=== PATIENT | male | born 1960 | race Caucasian/White ===

== ENCOUNTER 2016-07-28 11:46 | Emergency (ER) | payer OTHER ==
[~2016-07-28] VITALS: Wt 95.0 kg
[~2016-07-28 11:46] MED LIST: CLON2TAB3 PO; METO-407 PO; PARO37.52 PO; QUET200T PO
[2016-07-28 11:51] VITALS: Wt 95.0 kg
[2016-07-28] MEDS ORDERED: DILTIAZEM 25 MG INJ IV ONE (12:30)
[2016-07-28] MEDS ORDERED: PARO40TA48 PO ×2 (12:31→13:51)
[2016-07-28 12:32] LABS: BASOPHILS % 0.3 % (0.0-2.0); EOSINOPHILS % 0.2 % (0.0-7.0); HEMATOCRIT 49.3 % (42.0-52.0); HEMOGLOBIN 17.3 g/dl (14.0-18.0); LYMPHOCYTES # 1.7 10^3/ul (0.8-2.9); LYMPHOCYTES % 15.4 % (15.0-51.0); MEAN CORPUSCULAR VOLUME 99.9 fl (82.0-101.0); MEAN PLATELET VOLUME 8.7 fl (7.4-10.4); MONOCYTE # 1.1 10^3/ul (0.3-0.9); MONOCYTES % 10.3 % (0.0-11.0); NEUTROPHILS % 73.8 % (39.0-77.0); PLATELET COUNT 238 10^3/UL (140-440); RED BLOOD COUNT 4.93 10^6/ul (4.70-6.10); RED CELL DISTRIBUTION WIDTH 13.3 % (11.5-14.5); UNCORRECTED WBC 10.9 10^3/ul (4.8-10.8); WHITE BLOOD COUNT 10.9 10^3/ul (4.8-10.8)
[2016-07-28] MEDS ORDERED: CLON1TAB3 PO (12:33)
[2016-07-28] MEDS ORDERED: DIVA500T7 PO ×2 (12:33→13:51)
--- NOTE | 2016-07-28 12:33 | RADRPT ---
PROCEDURE: XR Chest. CLINICAL INDICATION: Chest pain. TECHNIQUE: Single frontal view. COMPARISON: None. FINDINGS: The lungs are clear. The heart size is normal. There is no pleural effusion. There is no pneumothorax. IMPRESSION: 1. Normal chest radiograph. RPTAT: QQ .Vaughn Lujan MD, Date Time Electronically viewed and signed by .Vaughn Lujan MD, on 07/28/2016 12:33 .R/
[2016-07-28 12:35] VITALS: RESP 25; TEMP 98.8
[2016-07-28 12:36] LABS: CONDITION 1
[2016-07-28 12:42] LABS: CHLORIDE 95 mmol/L (97-110); POTASSIUM 3.3 mmol/L (3.5-5.1); SODIUM 137 mmol/L (135-144)
[2016-07-28 12:45] LABS: ANION GAP 20 (8-16); BLOOD UREA NITROGEN 17 mg/dl (7-20); CARBON DIOXIDE 25 mmol/L (21-31)
[2016-07-28 12:46] LABS: CALCIUM 9.8 mg/dl (8.4-10.2); GLUCOSE 124 mg/dl (70-220); MAGNESIUM 1.9 mg/dl (1.7-2.5)
[2016-07-28 12:47] LABS: CREATINE KINASE 110 IU/L (23-200)
[2016-07-28 12:53] LABS: INR 0.95; PROTIME 12.7 Sec (12.2-14.2)
[2016-07-28 12:54] VITALS: BP 102/83; PULSE 93
[2016-07-28 12:54] LABS: PARTIAL THROMBOPLASTIN TIME 31.2 Sec (25.0-35.0)
[2016-07-28 12:55] LABS: B-TYPE NATRIURETIC PEPTIDE 209 PG/ML (0-125)
[2016-07-28 12:57] LABS: CK-MB 2.31 ng/ml (0.0-2.4)
[2016-07-28 12:58] LABS: TROPONIN-I < 0.012 ng/ml (0.00-0.12)
[2016-07-28] MEDS ORDERED: LABETALOL HCL 20MG INJ IV ONE (13:00)
[2016-07-28] MEDS ORDERED: LORAZEPAM 2 MG INJ IV ONE (13:00)
[2016-07-28 13:08] LABS: TROPONIN-I < 0.012 ng/ml (0.00-0.12)
[2016-07-28] MEDS ORDERED: POTASSIUM CHLORIDE (SR) 20 MEQ TAB PO STA (13:49)
--- NOTE | 2016-07-28 13:50 | ERD ---
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 non provoked. tightness HPI This is a 56-year-old male who presents to the emergency room for evaluation of heart palpitations, mild chest discomfort, and anxiety for the past 2 hours. This patient does state that he went to his primary care physician's office to get a prescription refill on his Paxil, Klonopin, and Depakote. He states that he started to feel anxious and started to feel his heart racing. The patient states that he came to the ER for evaluation. He denies any diaphoresis, nausea , blurred vision associated with this. No aggravating or relieving factors. The patient does state that he had previous heart ablation and was on metoprolol however his physician has stopped that medication, and he has not taken metoprolol in over one year ROS All systems reviewed and are negative except as per history of present illness. Medications Home Meds Reported Medications Clonazepam* (Clonazepam*) 1 Mg Tablet, 1 MG PO BID Y for ANXIETY, TAB 07/28/16 Divalproex Sodium* (Depakote*) 500 Mg Tablet.dr, 500 MG PO TID, #90 TAB 07/28/16 Paroxetine Hcl* (Paxil*) 40 Mg Tablet, 40 MG PO DAILY, TAB 07/28/16 Discontinued Reported Medications Clonazepam* (Clonazepam*) 2 Mg Tablet, 2 MG PO BID, TAB 09/08/15 Metoprolol Tartrate* (Lopressor*) 100 Mg Tablet, 100 MG PO BID, #60 TAB 05/15/15 Paroxetine Hcl* (Paroxetine* ER) 37.5 Mg Tab.sr.24h, 37.5 MG PO DAILY, TAB.SA 05/15/15 Quetiapine Fumarate* (Seroquel*) 200 Mg Tablet, 400 MG PO BID 10/03/12 Allergies Allergies: Coded Allergies: No Known Allergies (Verified Allergy, Mild, 07/28/16) PMhx/Soc History of Surgery: No Anesthesia Reaction: No Hx Neurological Disorder: No Hx Respiratory Disorders: No Hx Cardiac Disorders: Yes (tachycardia) Hx Psychiatric Problems: Yes (bipolar disorder) Hx Miscellaneous Medical Probl: No Hx Alcohol Use: Yes (occasionally) Hx Substance Use: No Hx Tobacco Use: Yes Smoking Status: Current some day smoker Physical Exam Vitals Vital Signs Date Time Temp Pulse Resp B/P Pulse Ox O2 Delivery O2 Flow Rate FiO2 07/28/16 12:54 93 102/83 07/28/16 12:44 Nasal Cannula 2 07/28/16 12:35 98.8 165 25 131/95 98 Room Air 07/28/16 11:51 98.0 192 20 122/89 98 Physical Exam INITIAL VITAL SIGNS: Reviewed by me GENERAL: The patient is well developed and appropriate for usual state of health in no apparent distress HEENT: Pupils equal, round, and reactive to light. EOMI. There is no scleral icterus. NECK: C-spine is soft and supple, there is no meningismus. There is no cervical lymphadenopathy. LUNGS: Clear to auscultation bilaterally. There are no rales, wheezes or rhonchi. HEART: Tachycardia, no murmurs, clicks, rubs or gallops. ABDOMEN: Soft, non-tender, non-distended. There are bowel sounds in all four quadrants. No rebound or guarding. EXTREMITIES: There is no peripheral cyanosis or edema. No focal swelling or erythema. NEUROLOGICAL: The patient moves all four extremities with 5/5 strength. Cranial nerves II - XII are intact. Normal gait. Alert and oriented SKIN: There is no apparent rash or petechiae. HEME/LYMPHATIC: There is no evidence of excessive bruising or lymphedema. PSYCHIATRIC: The patient does appear moderately anxious Result Diagram: 07/28/16 1216 07/28/16 1216 Results 24 hrs Laboratory Tests Test 07/28/16 12:16 Activated Partial Thromboplast Time 31.2Sec Anion Gap 20 B-Type Natriuretic Peptide 209PG/ML Basophils # 0.010^3/ul Basophils % 0.3% Blood Urea Nitrogen 17mg/dl Calcium Level 9.8mg/dl Carbon Dioxide Level 25mmol/L Chloride Level 95mmol/L Creatine Kinase 110IU/L Creatine Kinase Index 2.1 Creatinine 0.90mg/dl Creatinine Kinase MB (Mass) 2.31ng/ml Eosinophils # 0.010^3/ul Eosinophils % 0.2% Glucose Level 124mg/dl Hematocrit 49.3% Hemoglobin 17.3g/dl INR International Normalized Ratio 0.95 Lymphocytes # 1.710^3/ul Lymphocytes % 15.4% Magnesium Level 1.9mg/dl Mean Corpuscular Hemoglobin 35.0pg Mean Corpuscular Hemoglobin Concent 35.0g/dl Mean Corpuscular Volume 99.9fl Mean Platelet Volume 8.7fl Monocytes # 1.110^3/ul Monocytes % 10.3% Neutrophils # 8.010^3/ul Neutrophils % 73.8% Nucleated Red Blood Cells # 0.010^3/ul Nucleated Red Blood Cells % 0.0/100WBC Platelet Count 11426^3/UL Potassium Level 3.3mmol/L Prothrombin Time 12.7Sec Prothrombin Time Ratio 1.0 Red Blood Count 4.9310^6/ul Red Cell Distribution Width 13.3% Sodium Level 137mmol/L Troponin I < 0.012ng/ml White Blood Count 10.910^3/ul Current Medications Medications (Trade) Dose Ordered Sig/Xin Route PRN Reason Start Time Stop Time Status Last Admin Dose Admin Diltiazem HCl (Cardizem Iv) 10 mg ONCE ONCE IV 07/28/16 12:30 07/28/16 12:31 DC 07/28/16 12:20 Labetalol HCl (Labetalol) 10 mg ONCE ONCE IV 07/28/16 13:00 07/28/16 13:01 DC 07/28/16 12:41 Lorazepam (Ativan) 1 mg ONCE ONCE IV 07/28/16 13:00 07/28/16 13:01 DC 07/28/16 12:52 Procedures/MDM EKG: Rate/Rhythm: Sinus tachycardia QRS, ST, T-waves: [No changes consistent w/ acute ischemia] Impression: Sinus tachycardia EKG: #2 Rate/Rhythm: Sinus tachycardia QRS, ST, T-waves: [No changes consistent w/ acute ischemia] Impression: Sinus tachycardia Chest X-ray 1V Interpreted by me: Soft Tissue: No acute abnormalities Bones: No acute abnormalities Mediastinum/Cardiac Silhouette/Lungs: [No acute abnormalities] This 56-year-old male presents to the emergency room for evaluation of anxiety, fast heart rate, and chest discomfort. When I evaluated this patient he had a heart rate of 180 bpm. I attempted Valsalva to decrease patient's heart rate however it was not successful. The patient was given Cardizem without relief, I also gave the patient labetalol without relief. I spoke to this patient and he has been on Klonopin 2 mg daily and is not has Klonopin for 4 days. I did give this patient 1 mg of Ativan IV in his heart rate has decreased to 92 bpm. He states he is feeling better at this time. I am not sure whether this patient 's symptoms are relieved with Ativan for benzodiazepine withdrawal, or from labetalol given. I do have contacted cardiology, Dr. Ruiz who saw this patient last year. He recommends the patient be started on 25 mg of metoprolol twice daily. I have talked to the patient about this and he states that he can contact his primary care physician and get a cardiology referral. The patient is hemodynamically stable this time will be discharged home with a prescription for Klonopin 1 mg twice daily, Depakote 500 mg 3 times daily, Paxil 40 mg daily , metoprolol 25 mg twice daily. Troponin normal Departure Diagnosis: Primary Impression: Chest pain Additional Impressions: Palpitations Hypokalemia Benzodiazepine withdrawal Condition: Stable DOUGLAS MATOS DO Jul 28, 2016 13:50
[2016-07-28] MEDS ORDERED: CLON-412 PO ×2 (13:51→14:19)
[2016-07-28] MEDS ORDERED: METO25TA7 PO (13:51)
== END 2016-07-28 14:32 | disposition home or self-care (01) ==
LOC: E/R 11:46
DX: R07.89 Other chest pain (principal); R00.2 Palpitations; E87.6 Hypokalemia; F17.210 Nicotine dependence, cigarettes, uncomplicated; R40.2142 Coma scale, eyes open, spontaneous, at arrival to emergency department; R40.2252 Coma scale, best verbal response, oriented, at arrival to emergency department; R40.2362 Coma scale, best motor response, obeys commands, at arrival to emergency department; F13.239 Sedative, hypnotic or anxiolytic dependence with withdrawal, unspecified
CPT/HCPCS: 36415; 71010; 80048; 82550; 82553; 83735; 83880; 84484; 85025; 85610; 85730; 93005; 96374; 96375; J2060; Z7502; Z7610

== ENCOUNTER 2016-11-09 15:36 | Emergency (ER) | payer OTHER ==
[~2016-11-09] VITALS: Ht 180.3 cm; Wt 95.5 kg
[~2016-11-09 15:36] MED LIST changes: +CLON-412 PO; +CLON1TAB3 PO; -CLON2TAB3 PO; +DIVA500T7 PO; -METO-407 PO; +METO25TA7 PO; -PARO37.52 PO; +PARO40TA48 PO; -QUET200T PO
[2016-11-09 15:46] VITALS: Ht 180.3 cm; Wt 95.5 kg
[2016-11-09] MEDS ORDERED: ADENOSINE 6 MG INJ IV ONE ×4 (16:00→16:30)
[2016-11-09] MEDS ORDERED: METOPROLOL 5 MG INJ IV ONE (16:00)
[2016-11-09 16:03] LABS: ADD SCAN DIFF NO
[2016-11-09] MEDS ORDERED: LORAZEPAM 2 MG INJ ONE (16:06)
[2016-11-09 16:07] LABS: BASOPHIL # 0.1 10^3/ul (0.0-0.1); BASOPHILS % 0.4 % (0.0-2.0); EOSINOPHILS % 0.2 % (0.0-7.0); HEMOGLOBIN 17.4 g/dl (14.0-18.0); LYMPHOCYTES # 2.5 10^3/ul (0.8-2.9); LYMPHOCYTES % 19.5 % (15.0-51.0); MEAN CORPUSCULAR HEMOGLOBIN 34.7 pg (29.0-33.0); MEAN CORPUSCULAR HGB CONC 34.1 g/dl (32.0-37.0); MEAN CORPUSCULAR VOLUME 101.6 fl (82.0-101.0); MEAN PLATELET VOLUME 9.8 fl (7.4-10.4); MONOCYTE # 1.4 10^3/ul (0.3-0.9); NEUTROPHIL # 8.8 10^3/ul (1.6-7.5); NEUTROPHILS % 68.4 % (39.0-77.0); PLATELET COUNT 203 10^3/UL (140-415); RED BLOOD COUNT 5.02 10^6/ul (4.70-6.10); RED CELL DISTRIBUTION WIDTH 13.3 % (11.5-14.5); WHITE BLOOD COUNT 12.8 10^3/ul (4.8-10.8)
[2016-11-09 16:24] LABS: INR 0.97; PROTIME 12.9 Sec (12.2-14.2)
[2016-11-09 16:26] LABS: ANION GAP 17 (8-16); BLOOD UREA NITROGEN 27 mg/dl (7-20); CALCIUM 10.3 mg/dl (8.4-10.2); CARBON DIOXIDE 25 mmol/L (21-31); CHLORIDE 103 mmol/L (97-110); CREATININE 1.11 mg/dl (0.61-1.24); GLUCOSE 154 mg/dl (70-220); POTASSIUM 4.1 mmol/L (3.5-5.1); SODIUM 141 mmol/L (135-144)
[2016-11-09] MEDS ORDERED: LORAZEPAM 2 MG INJ IV ONE ×2 (16:30)
[2016-11-09] MEDS ORDERED: ADENOSINE 3 MG/ML SYRINGE IV ONE (16:30)
[2016-11-09 16:31] LABS: CREATINE KINASE 89 IU/L (23-200)
[2016-11-09 16:38] LABS: B-TYPE NATRIURETIC PEPTIDE 271 PG/ML (0-125)
[2016-11-09] MEDS ORDERED: DILTIAZEM 25 MG INJ ONE (16:40)
[2016-11-09 16:42] LABS: TROPONIN-I < 0.012 ng/ml (0.00-0.12)
[2016-11-09 16:43] LABS: TROPONIN-I < 0.012 ng/ml (0.00-0.12)
[2016-11-09] MEDS ORDERED: DILTIAZEM 25 MG INJ IV ONE (17:00)
[2016-11-09] MEDS ORDERED: SOD CHLORIDE 0.9% 1,000 ML IV ONE (17:00)
--- NOTE | 2016-11-09 17:00 | RADRPT ---
PROCEDURE: XR Chest AP portable CLINICAL INDICATION: Chest pain TECHNIQUE: An AP portable radiograph of the chest was submitted. COMPARISON: 07/28/2016 FINDINGS: Support Hardware: A loop recorder projects over the chest. Cardiovascular: The cardiovascular silhouette appears unremarkable. Lung Baker: The lung baker appear clear with no nodule, alveolar infiltrate, or interstitial promi nence evident. Pleural Spaces: No pneumothorax or pleural effusion is identified. Osseous Structures: There is an old fracture seen at the distal right clavicle which appears nonunit ed. Soft Tissues: The soft tissues appear unremarkable. IMPRESSION: 1. A loop required projects over the mediastinum. 2. 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 3. Otherwise, stable and unremarkable portable chest. Physician Debra Date Time Electronically viewed and signed by Physician Debra on 11/09/2016 17:00 /
[2016-11-09] MEDS ORDERED: ACETAMINOPHEN 325 MG TAB PO PRN (20:30)
[2016-11-09] MEDS ORDERED: ONDANSETRON 4 MG INJ IV PRN (20:30)
[2016-11-09] MEDS ORDERED: ASPIRIN 81 MG TAB PO ONE (21:00)
--- NOTE | 2016-11-09 21:03 | ERA ---
ER Documentation Chief Complaint Date/Time DATE: 11/09/16 TIME: 20:53 Chief Complaint INCREASED HEART RATE, SWEATING, SOB HPI This 56-year-old male presents for feeling extreme palpitations with lightheadedness, chest tightness, diaphoresis. He has a history of hypertension as well as SVT. He had an ablation 2-1/2 years ago since then he has had multiple recurrences of his SVT. He states that it has been very refractory to remove some times. His last episode was 2 months ago. Is currently taking his beta-yeyo regularly. ROS All systems reviewed and are negative except as per history of present illness. Medications Home Meds Active Scripts Clonazepam* (Klonopin*) 1 Mg Tablet, 1 MG PO BID, #28 TAB Prov:SHAWNADOUGLAS DO 07/28/16 Metoprolol Succinate* (Toprol XL*) 25 Mg Tab.sr.24h, 25 MG PO DAILY, #60 TAB Prov:HÉCTORGEJanuaryDOUGLAS DO 07/28/16 Divalproex Sodium* (Depakote*) 500 Mg Tablet.dr, 500 MG PO TID, #90 TAB Prov:HÉCTORDOUGLAS GALEANO DO 07/28/16 Paroxetine Hcl* (Paxil*) 40 Mg Tablet, 40 MG PO DAILY, #30 TAB Prov:HÉCTORGEJanuaryDOUGLAS DO 07/28/16 Clonazepam* (Klonopin*) 1 Mg Tablet, 1 MG PO BID for 7 Days, #14 TAB Prov:HÉCTORGEJanuaryDOUGLAS DO 07/28/16 Reported Medications Clonazepam* (Clonazepam*) 1 Mg Tablet, 1 MG PO BID Y for ANXIETY, TAB 07/28/16 Divalproex Sodium* (Depakote*) 500 Mg Tablet.dr, 500 MG PO TID, #90 TAB 07/28/16 Paroxetine Hcl* (Paxil*) 40 Mg Tablet, 40 MG PO DAILY, TAB 07/28/16 Allergies Allergies: Coded Allergies: No Known Allergies (Verified Allergy, Mild, 07/28/16) PMhx/Soc Medical and Surgical Hx: pt denies Medical Hx, pt denies Surgical Hx History of Surgery: No Anesthesia Reaction: No Hx Neurological Disorder: No Hx Respiratory Disorders: No Hx Cardiac Disorders: Yes (tachycardia, SVT) Hx Psychiatric Problems: Yes (bipolar disorder) Hx Miscellaneous Medical Probl: No Hx Alcohol Use: Yes (occasionally) Hx Substance Use: No Hx Tobacco Use: Yes (8 CIGS/DAY) Smoking Status: Current every day smoker Physical Exam Vitals Vital Signs Date Time Temp Pulse Resp B/P Pulse Ox O2 Delivery O2 Flow Rate FiO2 11/09/16 20:40 98 18 110/79 98 Room Air 11/09/16 17:30 96 18 94/83 98 Room Air 11/09/16 16:32 19 106/89 11/09/16 16:18 28 121/92 11/09/16 16:05 22 115/98 11/09/16 16:00 99.7 28 124/98 11/09/16 15:46 98.2 180 19 105/76 96 Physical Exam Const: [] Moderate distress Head: Atraumatic Eyes: Normal Conjunctiva ENT: Normal External Ears, Nose and Mouth. Neck: Full range of motion..~ No meningismus. Resp: Mild decreased bibasilar breath sounds Cardio: Extreme tachycardia, no murmurs Abd: Soft, non tender, non distended. Normal bowel sounds Skin: No petechiae or rashes, diaphoretic Back: No midline or flank tenderness Ext: No cyanosis, or edema Neur: Awake and alert oriented 3, no focal deficit Psych: Anxious Result Diagram: 11/09/16 1557 11/09/16 1557 Results 24 hrs Laboratory Tests Test 11/09/16 15:57 White Blood Count 12.810^3/ul Red Blood Count 5.0210^6/ul Hemoglobin 17.4g/dl Hematocrit 51.0% Mean Corpuscular Volume 101.6fl Mean Corpuscular Hemoglobin 34.7pg Mean Corpuscular Hemoglobin Concent 34.1g/dl Red Cell Distribution Width 13.3% Platelet Count 54584^3/UL Mean Platelet Volume 9.8fl Neutrophils % 68.4% Lymphocytes % 19.5% Monocytes % 11.0% Eosinophils % 0.2% Basophils % 0.4% Nucleated Red Blood Cells % 0.0/100WBC Neutrophils # 8.810^3/ul Lymphocytes # 2.510^3/ul Monocytes # 1.410^3/ul Eosinophils # 0.010^3/ul Basophils # 0.110^3/ul Nucleated Red Blood Cells # 0.010^3/ul Prothrombin Time 12.9Sec Prothrombin Time Ratio 1.0 INR International Normalized Ratio 0.97 Activated Partial Thromboplast Time 30.0Sec Sodium Level 141mmol/L Potassium Level 4.1mmol/L Chloride Level 103mmol/L Carbon Dioxide Level 25mmol/L Anion Gap 17 Blood Urea Nitrogen 27mg/dl Creatinine 1.11mg/dl Glucose Level 154mg/dl Calcium Level 10.3mg/dl Creatine Kinase 89IU/L Creatine Kinase Index 3.0 Creatinine Kinase MB (Mass) 2.70ng/ml Troponin I < 0.012ng/ml B-Type Natriuretic Peptide 271PG/ML Current Medications Medications (Trade) Dose Ordered Sig/Xin Route PRN Reason Start Time Stop Time Status Last Admin Dose Admin Adenosine (Adenosine) 6 mg ONCE ONCE IV 11/09/16 16:00 11/09/16 16:01 DC 11/09/16 15:56 Metoprolol Tartrate (Lopressor) 5 mg ONCE ONCE IV 11/09/16 16:00 11/09/16 16:01 DC 11/09/16 16:13 Lorazepam (Ativan) 2 mg STK-MED ONCE .ROUTE 11/09/16 16:06 11/09/16 16:07 DC Lorazepam (Ativan) 1 mg ONCE ONCE IV 11/09/16 16:30 11/09/16 16:31 DC 11/09/16 16:16 Lorazepam (Ativan) 1 mg ONCE ONCE IV 11/09/16 16:30 11/09/16 16:31 DC Adenosine (Adenosine) 12 mg ONCE ONCE IV 11/09/16 16:30 11/09/16 16:31 DC 11/09/16 16:18 Adenosine 18 mg ONCE ONCE IV 11/09/16 16:30 11/09/16 16:30 DC Adenosine (Adenosine) 6 mg ONCE ONCE IV 11/09/16 16:30 11/09/16 16:31 DC Adenosine (Adenosine) 12 mg ONCE ONCE IV 11/09/16 16:30 11/09/16 16:31 DC Diltiazem HCl (Cardizem Iv) 20 mg ONCE ONCE IV 11/09/16 17:00 11/09/16 17:01 DC 11/09/16 16:48 Diltiazem HCl 25 mg 25 mg STK-MED ONCE .ROUTE 11/09/16 16:40 11/09/16 16:41 DC Sodium Chloride (NS) 1,000 ml @ 1,000 mls/hr Q1H ONCE IV 11/09/16 17:00 11/09/16 17:59 DC 11/09/16 17:01 Ondansetron HCl (Zofran Inj) 4 mg ER BRIDGE PRN IV NAUSEA AND/OR VOMITING 11/09/16 20:30 11/10/16 20:29 Acetaminophen (Tylenol Tab) 650 mg ER BRIDGE PRN PO MILD PAIN/FEVER 11/09/16 20:30 11/10/16 20:29 Procedures/MDM Refractory SVT requiring multiple medications with chest pain and hypotension after treatment. Patient did not respond to initial 6 and 12 mg of adenosine after vagal maneuvers produced no result either.. He was then given 5 mg of metoprolol as well as a milligram of Ativan. He is given a liter of fluid. It was tried again with 18 mg of adenosine at which point the patient did have an asystolic pause and heart rate went down return to a consistent level of about 120. I then gave 20 mg of Cardizem which lowered the heart rate to just mildly tachycardic with a rate of around 105. Patient felt much better did not feel short of breath but still had some chest tightness. Was given another liter of IV fluid as well as aspirin. Patient strongly prefers to be admitted because he is very afraid that this will just keep happening again. Because he is still hypotensive and mildly tachycardic on the Cardizem and metoprolol which may wear off his heart rate may increase again I tend to agree this time he should be at least admitted overnight for observation as well as for a set up for electrophysiological mapping as the patient would likely need a new ablation. Will be admitted to telemetry. Dr. Hdez is admitting. EKG interpretation #1: Sinus tachycardia rate of 186, normal axis, no ST or T- wave changes concerning for acute ischemia with rate related ST depressions. EKG interpretation #2: (During adenosine push) heart rate of 160s followed by asystolic pause followed by heart rate around 120, no ST T-wave changes concerning for acute ischemia, normal axis EKG interpretation #3 sinus tachycardia rate of 104, normal axis, no ST or T- wave changes concerning for acute ischemia. 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 No other arrhythmias Chest x-ray interpretation: I see no acute process, no widened mediastinum, no pulmonary edema, no pneumothorax, no acute fractures Critical care time 46 minutes: This includes treatment of refractory SVT, use of multiple vasoactive medications, multiple doses of adenosine as well as metoprolol, diltiazem, careful fluid administration, treatment of unstable vital signs, chart reviewed, discussion with patient and admitting doctor. This does not include any billable procedures. Departure Diagnosis: Primary Impression: Chest pain Additional Impressions: SVT (supraventricular tachycardia) Hypotension Condition: Serious EDWIN AQUINO DO Nov 09, 2016 21:03
[2016-11-09] MEDS ORDERED: QUET200T PO (23:32)
[2016-11-09] MEDS ORDERED: [UNRECOGNIZED DRUG - CODE] PO (23:32)
[2016-11-10 05:34] LABS: CREATINE KINASE 55 IU/L (23-200)
[2016-11-10 06:00] LABS: CK-MB 1.36 ng/ml (0.0-2.4); TROPONIN-I < 0.012 ng/ml (0.00-0.12)
[2016-11-10] MEDS ORDERED: ACETAMINOPHEN 325 MG TAB PO PRN (07:00)
[2016-11-10] MEDS ORDERED: morphine 2 MG INJ IV PRN (07:00)
[2016-11-10] MEDS ORDERED: NACL 0.9% 3 ML SYG IV SCH (07:00)
[2016-11-10] MEDS ORDERED: clonAZEPAM 0.5 MG TAB PO PRN (07:00)
[2016-11-10] MEDS ORDERED: LABETALOL HCL 20MG INJ IV PRN (07:00)
[2016-11-10] MEDS ORDERED: ONDANSETRON 4 MG INJ IV PRN (07:00)
[2016-11-10 07:25] VITALS: BP 131/92; PULSE 106; RESP 18; TEMP 98
[2016-11-10] MEDS ORDERED: PAROXETINE 20 MG TAB PO SCH (09:00)
[2016-11-10] MEDS ORDERED: DIVALPROEX (EC) 500 MG TAB PO SCH (09:00)
[2016-11-10] MEDS ORDERED: QUETIAPINE 100 MG TAB PO SCH (09:00)
[2016-11-10] MEDS ORDERED: METOPROLOL 25 MG TAB PO SCH (09:00)
[2016-11-10] MEDS ORDERED: HEPARIN 5,000 UNIT/0.5 ML VIAL SC SCH (09:00)
--- NOTE | 2016-11-10 09:18 | HP ---
DATE OF ADMISSION: 11/09/2016 CHIEF COMPLAINT: Dizziness and palpitation. HISTORY OF PRESENT ILLNESS: The patient is a 56-year-old male with a history of paroxysmal atrial t achycardia/atrial flutter, possible SVT status post ablation, hypertension, schizoaffective and post traumatic stress disorder and possible bipolar, who presented to the emergency department with the gee boggs stated chief complaint. The patient had ablation procedure done by Dr. Cantrell in 2014, but he stated he has had multiple recurrent SVTs since then, the last episode being about 2 months ago. T he last time the patient was admitted here was a month ago for a similar issue where he was found to be an SVT. At that time; however, the patient eloped. When the patient presented to the ER this t eda, he was in SVT with initial heart rate documented to be 180. Initial EKG shows sinus tachycardi a with a rate of 186. The patient received 6 mg of adenosine followed by 12 mg, but he did not resp ond. He was then given 5 mg of metoprolol, Ativan, a liter of normal saline and 18 mg of adenosine. At that point, according to the ER note, the patient did have asystolic pause and the heart rate w ent down and then leveled at 120. He was then given 20 mg of Cardizem and since then his heart rate has been in the 90s and high 80s. His blood pressure remains stable. REVIEW OF SYSTEMS: A 12-point review was performed, negative except as mentioned in HPI. PAST MEDICAL HISTORY: As per HPI. PAST SURGICAL HISTORY: Cardiac ablation and shoulder surgery. SOCIAL HISTORY: Smokes about half a pack per day. ALLERGIES: NO KNOWN DRUG ALLERGIES. HOME MEDICATIONS: 1. Clonazepam. 2. Paxil. 3. Depakote. 4. Seroquel. 5. Centrum Men's tablet.. PHYSICAL EXAMINATION: GENERAL: The patient is slightly anxious, but able to speak in full sentences and answering questio ns appropriately. HEENT: No obvious head deformity. Pupils are reactive to light. Extraocular muscles intact. CARDIOVASCULAR: Tachycardic. LUNGS: Clear. ABDOMEN: Soft, nontender, nondistended. Positive bowel sounds. EXTREMITIES: No edema. NEUROLOGIC: No focal deficits. LABORATORY: BUN 27, calcium 10.3. WBC 12.8. Otherwise, CBC and BMP within acceptable range. Firs t 2 troponins are negative. IMPRESSION: 1. Supraventricular tachycardia, resolved status post multiple meds. 2. History of recurrent atrial flutters/supraventricular tachycardia, status post ablation in 2014. 3. History of schizoaffective/posttraumatic stress and possible bipolar disorder. 4. Leukocytosis, likely stress-induced. PLAN: The patient for now has been chemically converted from supraventricular tachycardia, and his heart rate now is in the 90s and high 80s. He will be placed on cardiac medication with adjustment as needed. We will place a cardiology consult. He is currently awaiting admission to telemetry [facility]. We will continue his psych medication as well. Further workup and management per clinical course. Dictated By: BHARATHI LEWIS/DIAMOND Conf#: [id number] DID#: [id number]
--- NOTE | 2016-11-10 16:32 | DS ---
DATE OF ADMISSION: 11/09/2016 DATE OF DISCHARGE: 11/10/2016 DISCHARGE DIAGNOSES: Patient left against medical advice. DISCHARGE DIAGNOSES: 1. Supraventricular tachycardia, resolved, status post adenosine, 2. History of recurrent atrial fibrillation flutter with supraventricular tachycardia, status post ablation in 2016. 3. History of schizoaffective posttraumatic stress and bipolar disorder. 4. Leukocytosis, likely stress-induced. HOSPITAL COURSE: The patient is a 56-year-old male with history of paroxysmal atrial tachycardia, a trial flutter, possible SVT status post ablation in the past, hypertension and schizoaffective diso rder, posttraumatic stress disorder. The patient presented with dizziness and palpitations. Aminta amador presented to the ED with SVTs with a heart rate in the 180s. The patient received adenosine. Ult imately his SVTs had resolved. The patient also received Cardizem in the ED. Before patient moved from the ER, patient decided to leave AMA. Patient was admitted by the learning and development consultant, but the patient cannot be evaluated prior to him leaving AMA as once again, he left prior to arriving on the floor a nd wanted to leave from the emergency room. CONDITION ON DISCHARGE: Reportedly fair, per nursing. DISPOSITION: No disposition instructions given. MEDICATIONS: No medication instructions given. FOLLOWUP: No followup instructions were given as the patient left AMA. Dictated By: CURT SAGASTUME MD BS/NTS Conf#: [id number] DID#: [id number]
== END 2016-11-10 10:00 | disposition left against medical advice (07) ==
LOC: E/R 15:36
DX: R07.9 Chest pain, unspecified (principal); I47.1 Supraventricular tachycardia; I95.9 Hypotension, unspecified; F17.210 Nicotine dependence, cigarettes, uncomplicated
CPT/HCPCS: 36415; 71010; 80048; 82550; 82553; 83880; 84484; 85025; 85610; 85730; 93005; 96361; 96372; 96374; 96375; J0153; J1644; J2060; J7030; Z7502; Z7610